=== PATIENT | male | born 1975 | race Two or more races ===

== ENCOUNTER 2016-07-22 16:46 | Emergency (ER) | payer SELFPAY ==
[2016-07-22 17:37] VITALS: BP 121/73
--- NOTE | 2016-07-22 17:58 | UC ---
Throat Pain/Nasal Jc HPI - HPI Summary HPI Summary: 40 male presents complaining of nasal congestion, sore throat, and cough for the past 8 days. Patient states he has had sinus pressure and pain. He has tried taking Nyquil and Mucinex without much relief. Patient has intermittent chills but has not taken his temperature. States his throat is very irritated and raw causing him to cough. He states it feels very swollen. Denies chest pain , SOB, ear pain, nausea, vomiting or abdominal pain. Patient does feel fatigued. - History of Current Complaint Chief Complaint: UCRespiratory Stated Complaint: COUGH,CONGESTION,ST Time Seen by Provider: 07/22/16 17:41 Hx Obtained From: Patient Onset/Duration: Sudden Onset, Lasting Weeks - 8 days Severity: Moderate Pain Intensity: 4 Pain Scale Used: 0-10 Numeric Cough: Productive Associated Signs & Symptoms: Positive: Dysphagia, Sinus Discomfort, Nasal Discharge - Allergies/Home Medications Allergies/Adverse Reactions: Allergies Allergy/AdvReac Type Severity Reaction Status Date / Time No Known Allergies Allergy Verified 07/22/16 17:38 Home Medications: Home Medications Dextromethorphan-Phenylephrine [Vicks Dayquil Cold & Flu] 2 cap PO Q4HR PRN [History Confirmed 07/22/16] Otc Cough Med 1 dose PO Q4HR PRN 07/22/16 [History Confirmed 07/22/16] guaiFENesin ER TAB [Mucinex*] 600 mg PO BID 07/22/16 [History Confirmed 07/22/16 ] PMH/Surg Hx/FS Hx/Imm Hx Previously Healthy: Yes - Surgical History Surgery Procedure, Year, and Place: Tonsillar cyst removal - 1996 - Family History Known Family History: Positive: Unknown - Social History Alcohol Use: None Substance Use Type: None Smoking Status (MU): Former Smoker Length of Time of Smoking/Using Tobacco: Quit 2-3 years ago. Casual smoker. Review of Systems Constitutional: Chills, Fatigue Skin: Negative Eyes: Negative ENT: Sore Throat, Nasal Discharge, Other - sinus pressure/pain Respiratory: Cough Cardiovascular: Negative Gastrointestinal: Negative Genitourinary: Negative Motor: Negative Neurovascular: Negative Musculoskeletal: Negative Neurological: Negative Psychological: Negative All Other Systems Reviewed And Are Negative: Yes Physical Exam Triage Information Reviewed: Yes Appearance: Well-Appearing, No Pain Distress, Well-Nourished Vital Signs: Initial Vital Signs Temp 98.8 F 07/22/16 17:31 Pulse 83 07/22/16 17:31 Resp 18 07/22/16 17:31 BP 121/73 07/22/16 17:31 Pulse Ox 96 07/22/16 17:31 Vital Signs Reviewed: Yes Eye Exam: Normal ENT: Positive: Hearing grossly normal, Pharyngeal erythema, Nasal congestion, Nasal drainage, TMs normal, Other: - sounds congested, frontal and maxillary sinus discomfort on palpation and percussion Dental Exam: Normal Neck: Positive: Supple, Nontender, Enlarged Nodes @ - left cervical Respiratory: Positive: Chest non-tender, Lungs clear, Normal breath sounds, No respiratory distress Cardiovascular: Positive: RRR, No Murmur, Pulses Normal, Brisk Capillary Refill Abdomen Description: Positive: Nontender, Soft Musculoskeletal Exam: Normal Neurological Exam: Normal Psychological Exam: Normal Skin Exam: Normal Throat Pain/Nasal Course/Dx - Course Course Of Treatment: Patient will be instructed to continue OTC medications and prescribed augmentin for sinusitis since he has had no relief after 8 days. - Differential Dx/Diagnosis Differential Diagnosis/HQI/PQRI: Laryngitis, Otitis Media, Pharyngitis, Sinusitis, URI Provider Diagnoses: Acute Bacterial Sinusitis Discharge - Discharge Plan Condition: Stable Disposition: HOME Prescriptions: Amoxicillin/Clavulanate TAB* [Augmentin TAB 875*] 875 mg PO BID #10 tab predniSONE TAB* [Deltasone TAB*] 40 mg PO DAILY #6 tab Patient Education Materials: Sinusitis (ED) Referrals: No Primary Care Phys,NOPCP [Primary Care Provider] - Additional Instructions: Take prescribed medication until all doses are finished even if symptoms improved. Be sure to take the medication with food. You may still use OTC medications as needed. Try using saline rinses. Drink plenty of fluids and get a lot of rest. Hot packs on your cheeks may help with symptoms. If symptoms worsen or do not improve please return to . Follow up with your PCP as needed.
== END 2016-07-22 18:18 | disposition home or self-care (01) ==
LOC: UCCORT 16:46
DX: J01.90 Acute sinusitis, unspecified (principal); Z87.891 Personal history of nicotine dependence
CPT/HCPCS: 99212; G0463

== ENCOUNTER 2016-09-15 17:58 | Emergency (ER) | payer OTHER ==
[2016-09-15 19:01] VITALS: BP 128/80
--- NOTE | 2016-09-15 20:16 | UC ---
Shoulder Pain HPI - HPI Summary HPI Summary: The patient comes in today for: 1. Right shoulder pain: Onset: Last night Palliative/provocative: moving makes the pain worse. Quality: Sharp Region: Posterior right shoulder Severity: 04/07 Time: Constant. Associated symptoms: Event: He fell last night. He was walking out of the door to get wood. He was going down the front steps and he fell landing on his back and right shoulder. He states that he wanted to cry. He took a pack meat out of the freezer and used it as a cold compress last night while in bed. He has not taken any medications for this. Previous disease: None Previous treatment: None other than cold compresses. * - History of Current Complaint Chief Complaint: UCUpperExtremity Stated Complaint: RIGHT SHOULDER PAIN Time Seen by Provider: 09/15/16 20:01 Hx Obtained From: Patient - Allergies/Home Medications Allergies/Adverse Reactions: Allergies Allergy/AdvReac Type Severity Reaction Status Date / Time No Known Allergies Allergy Verified 09/15/16 18:54 PMH/Surg Hx/FS Hx/Imm Hx Previously Healthy: No Endocrine History Of: Denies: Diabetes, Thyroid Disease, Hyperthyroidism, Hypothyroidism, Dyslipidemia Cardiovascular History Of: Denies: Cardiac Disorders, Hypertension, Pacemaker/ICD, Myocardial Infarction , Congestive Heart Failure, Atrial Fibrillation, Deep Vein Thrombosis, Bleeding Disorders Respiratory History Of: Denies: COPD, Asthma, Bronchitis, Pneumonia, Pulmonary Embolism GI/ History Of: Reports: Gastroesophageal Reflux - OTC Rx. Denies: Ulcer, Gastrointestinal Bleed, Gall Bladder Disease, Kidney Stones, Diverticulitis, Renal Disease, Urosepsis Neurological History Of: Denies: TIA, CVA, Dementia, Seizures, Migraine Psychological History Of: Denies: Anxiety, Depression, Bipolar Disorder, Schizophrenia, Post Traumatic Stress Disorder Cancer History Of: Denies: Lung Cancer, Colorectal Cancer, Breast Cancer, Prostate Cancer, Cervical Cancer Other History Of: Negative For: HIV, Hepatitis B, Hepatitis C, Anticoagulant Therapy - Surgical History Surgical History: Yes Surgery Procedure, Year, and Place: Tonsillar cyst removal - 1996 - Family History Known Family History: Negative: Cardiac Disease, Hypertension - Social History Occupation: Employed Full-time Alcohol Use: None Substance Use Type: None Smoking Status (MU): Former Smoker Length of Time of Smoking/Using Tobacco: Quit 2-3 years ago. Casual smoker. Household Exposure Type: Cigarettes Review of Systems Constitutional: Negative Skin: Negative Eyes: Negative ENT: Negative Respiratory: Negative Cardiovascular: Negative Gastrointestinal: Negative Genitourinary: Negative Musculoskeletal: Arthralgia, Myalgia All Other Systems Reviewed And Are Negative: Yes Physical Exam Triage Information Reviewed: Yes Appearance: Well-Appearing, No Pain Distress - Patient states that his pain is a 10/10, but he is smiling at times and not grimacing during the history taking. , Well-Nourished Vital Signs: Initial Vital Signs Temp 98.7 F 09/15/16 18:56 Pulse 55 09/15/16 18:56 Resp 14 09/15/16 18:56 BP 128/80 09/15/16 18:56 Pulse Ox 97 09/15/16 18:56 Vital Signs Reviewed: Yes Eyes: Positive: Conjunctiva Clear. Negative: Discharge ENT: Positive: Hearing grossly normal. Negative: Pharyngeal erythema, Nasal congestion, Nasal drainage, TM bulging, TM dull, TM red, Tonsillar swelling, Tonsillar exudate Dental: Negative: Gross Decay/Caries @, Dental Fracture @ Neck: Positive: Supple, Nontender, No Lymphadenopathy. Negative: Nuchal Rigidity Respiratory: Positive: Chest non-tender, Lungs clear, No respiratory distress, No accessory muscle use. Negative: Crackles, Rhonchi Cardiovascular: Positive: RRR, No Murmur Abdomen Description: Positive: Nontender, No Organomegaly, Soft. Negative: Distended, Guarding, Peritoneal Signs, Pulsatile Mass Musculoskeletal: Positive: Strength Intact, ROM Limited @, Other: - Right shoulder: He has no marked different in anatomy of the right shoulder compared to the left in terms of coloration or edema or induration. There is tenderness to palpation of the superior/medial corner of the scapula, and over the biceps tendon. He has abduction linmitation to 90 degrees--parallel to the floor. Anterior abduction is slightly less. There is no ecchymosis or erythema. There is minimal tenderness to palpation of the AC joint. Resistance to inward and outward rotation elicits pain. Neurological: Positive: Alert, Muscle Tone Normal Psychological: Positive: Age Appropriate Behavior, Consolable Skin: Negative: rashes, breakdown Shoulder Course/Dx - Course Course Of Treatment: He was given a toradol injection (60 mg), and a right shoulder x-ray done. He was told that the shoulder x-ray was normal and that he probably had muscular injury. - Differential Dx/Diagnosis Provider Diagnoses: right shoulder pain/contusion Discharge - Discharge Plan Condition: Stable Disposition: HOME Patient Education Materials: Shoulder Sprain (ED) Forms: *Work Release Referrals: No Primary Care Phys,NOPCP [Primary Care Provider] - Olman Gonzalez MD [Medical Doctor] - 1 Week (Please call Dr. Gonzalez's office for a follow-up visit later this week to see how well you are doing. If you get worse, please be seen sooner.)
[2016-09-15] MEDS ORDERED: Ketorolac INJ* 60 MG/2 ML VIAL IM ONE (20:46)
--- NOTE | 2016-09-15 21:24 | RAD ---
Indication: Right shoulder pain. 3 views of the right shoulder demonstrates no fracture. No other bone or joint abnormality is identified. IMPRESSION: No fracture of the right shoulder is identified.
[2016-09-15] MEDS ORDERED: HYDROcodone/ACETAMIN 5-325 MG* 1 TAB PO ONE (21:47)
== END 2016-09-15 21:58 | disposition home or self-care (01) ==
LOC: UCCORT 17:58
DX: S40.011A Contusion of right shoulder, initial encounter (principal); W10.9XXA Fall (on) (from) unspecified stairs and steps, initial encounter; Y93.89 Activity, other specified; Y92.9 Unspecified place or not applicable; K21.9 Gastro-esophageal reflux disease without esophagitis; Z87.891 Personal history of nicotine dependence
CPT/HCPCS: 96372; 99213; G0463; J1885

== ENCOUNTER 2017-03-13 10:58 | Emergency (ER) | payer OTHER ==
[2017-03-13 11:07] VITALS: BP 151/103
--- NOTE | 2017-03-13 11:40 | RAD ---
INDICATION: Trauma, table saw cut distal aspect of the left thumb. TECHNIQUE: 3 views of the left thumb were obtained. FINDINGS: There is a focal soft tissue defect present along the volar aspect of the distal thumb. There are couple small calcific densities which project over the superficial tuft soft tissues in the region of injury. The bones are normal alignment. No fracture is seen. Joint spaces appear maintained. IMPRESSION: SOFT TISSUE INJURY.
[2017-03-13] MEDS ORDERED: Gelfoam 12-7 ADSORBABL SPONGE* 1 EA SPONGE TOPICAL ONE (11:59)
--- NOTE | 2017-03-13 13:08 | UC ---
Laceration HPI - HPI Summary HPI Summary: 30 MINUTES [employer] WHILE WORKING, CUTTING SHIMS. CUT PAD OF LEFT THUMB WITH POWER SAW. LAST TETANUS 2012. - History Of Current Complaint Chief Complaint: UCLaceration Stated Complaint: LEFT THUMB LACERATION Time Seen by Provider: 03/13/17 11:17 Hx Obtained From: Patient Laceration Location: Finger Mechanism Of Injury: Sharp Trauma Onset/Duration: Sudden Onset, Lasting Minutes Severity: Moderate Pain Intensity: 8 Pain Scale Used: 0-10 Numeric Related History: Occupational Injury, Dominant Hand Right - Allergies/Home Medications Allergies/Adverse Reactions: Allergies Allergy/AdvReac Type Severity Reaction Status Date / Time No Known Allergies Allergy Verified 03/13/17 11:02 PMH/Surg Hx/FS Hx/Imm Hx Previously Healthy: Yes Other History Of: Negative For: HIV, Hepatitis B, Hepatitis C, Anticoagulant Therapy - Surgical History Surgical History: Yes Surgery Procedure, Year, and Place: Tonsillar cyst removal - 1996 - Family History Known Family History: Positive: Unknown Negative: Cardiac Disease, Hypertension - Social History Occupation: Employed Full-time Lives: With Family Alcohol Use: None Substance Use Type: None Smoking Status (MU): Former Smoker Length of Time of Smoking/Using Tobacco: Quit 4-5 years ago. Casual smoker. Household Exposure Type: Cigarettes - Immunization History Most Recent Tetanus Shot: 2012 Review of Systems Constitutional: Negative Skin: Other - AVULSION INJURY PALMAR SURFACE OF LEFT DISTAL THUMB Eyes: Negative ENT: Negative Respiratory: Negative Cardiovascular: Negative Gastrointestinal: Negative Genitourinary: Negative Motor: Negative Neurovascular: Negative Musculoskeletal: Myalgia - AVULSION INJURY PALMAR SURFACE OF LEFT DISTAL THUMB Neurological: Negative Psychological: Negative Is Patient Immunocompromised?: No All Other Systems Reviewed And Are Negative: Yes Physical Exam Triage Information Reviewed: Yes Appearance: Well-Appearing, Well-Nourished, Pain Distress Vital Signs: Initial Vital Signs Temp 98.6 F 03/13/17 11:03 Pulse 56 03/13/17 11:03 Resp 18 03/13/17 11:03 BP 151/103 03/13/17 11:03 Pulse Ox 100 03/13/17 11:03 Vital Signs Reviewed: Yes Eye Exam: Normal ENT Exam: Normal Dental Exam: Normal Neck exam: Normal Neck: Positive: Supple, Nontender, No Lymphadenopathy Respiratory Exam: Normal Respiratory: Positive: Chest non-tender, Lungs clear, Normal breath sounds, No respiratory distress, No accessory muscle use Cardiovascular Exam: Normal Cardiovascular: Positive: RRR, No Murmur, Pulses Normal Abdominal Exam: Normal Musculoskeletal: Positive: Strength Intact, ROM Intact, No Edema, Other: - AVULSION INJURY PALMAR SURFACE OF LEFT DISTAL THUMB Neurological Exam: Normal Psychological Exam: Normal Skin: Positive: Other - AVULSION INJURY PALMAR SURFACE OF LEFT DISTAL THUMB Laceration Repair - Laceration Repair 1 Description: Irregular - AVULSION INJURY PALMAR SURFACE OF LEFT DISTAL THUMB Laceration Size After Repair: Length (cm) - 2, Width (mm) - 5, Depth (mm) - 5 Modified For Repair: No Cleansing Completed Via Routine Prep: Yes Irrigation With Pressure Irrigation Device: Yes Suture Type: Other - GELFOAM Laceration Course/Dx - Differential Dx - Laceration/Wound Differental Diagnoses: Avulsion, Foreign Body, Fracture, Joint Space Violation, Joint Infection Provider Diagnoses: AVULSION INJURY PALMAR SURFACE OF LEFT DISTAL THUMB Discharge - Discharge Plan Condition: Stable Disposition: HOME Prescriptions: Hydrocodone-Acetaminophen [[place] 5-325 mg] 1 tab PO Q8HR #9 tab MDD THREE TABS Patient Education Materials: Skin Avulsion (ED) Forms: *Work Release Referrals: [facility] [place]] No Primary Care Phys,NOPCP [Primary Care Provider] - Additional Instructions: GEL FOAM APPLIED. PLEASE CHANGE DRESSING IN 36 HOURS. Images Hands: 1 - AVULSION INJURY PALMAR SURFACE OF LEFT DISTAL THUMB
== END 2017-03-13 12:18 | disposition home or self-care (01) ==
LOC: UCCORT 10:58
DX: S61.012A Laceration without foreign body of left thumb without damage to nail, initial encounter (principal)
CPT/HCPCS: 99212; A9270-GY; G0463

== ENCOUNTER 2017-05-25 16:43 | Emergency (ER) | payer SELFPAY | END 2017-05-25 18:46 | disposition left against medical advice (07) | LOC: UCCORT 16:43 | DX: R42 Dizziness and giddiness (principal); Z53.21 Procedure and treatment not carried out due to patient leaving prior to being seen by health care provider ==

== ENCOUNTER 2017-07-25 20:26 | Emergency (ER) | payer OTHER ==
[2017-07-25 20:42] VITALS: BP 122/79
--- NOTE | 2017-07-25 20:52 | UC ---
FLU HPI - HPI Summary HPI Summary: 41 y/o male presents to the urgent care c/o dry cough, AG, sinus pressure and pain and fever since this morning. Pt reports nasal congestion started about 1 week ago. He has taking Mucinex PO alleviate symptoms . He took Ibuprofen 600mg PO around 1900 to alleviate fever of 102.6. Pt denies SOB, wheezing, chest pain , abdominal pain , N/V/D - History of Current Complaint Chief Complaint: UCGeneralIllness Stated Complaint: FLU SXS Time Seen by Provider: 07/25/17 20:43 Hx Obtained From: Patient Onset/Duration: Gradual Onset, Lasting Days - this morning, Still Present Severity Currently: Moderate Severity Initially: Mild Pain Intensity: 7 Pain Scale Used: 0-10 Numeric Associated Signs & Symptoms: Positive: Fever, Myalgia, Cough, Sore Throat, Nasal Congestion, Headache - Risk Factors Influenza Risk Factors: Negative - Allergy/Home Medications Allergies/Adverse Reactions: Allergies Allergy/AdvReac Type Severity Reaction Status Date / Time No Known Allergies Allergy Verified 07/25/17 20:35 PMH/Surg Hx/FS Hx/Imm Hx Previously Healthy: Yes Cardiovascular History: Hypertension - diet control Other History Of: Negative For: HIV, Hepatitis B, Hepatitis C, Anticoagulant Therapy - Surgical History Surgical History: Yes Surgery Procedure, Year, and Place: Tonsillar cyst removal - 1996 - Family History Known Family History: Negative: Cardiac Disease, Hypertension Family History: dyslipidemia - Social History Occupation: Employed Full-time Lives: With Family Alcohol Use: None Substance Use Type: None Smoking Status (MU): Former Smoker Length of Time of Smoking/Using Tobacco: Quit 4-5 years ago. Casual smoker. Household Exposure Type: Cigarettes - Immunization History Most Recent Tetanus Shot: 2012 Review of Systems Constitutional: Fever, Chills, Other - body aches Skin: Negative Eyes: Negative ENT: Sore Throat, Nasal Discharge, Sinus Congestion, Sinus Pain/Tenderness Respiratory: Cough Cardiovascular: Negative Gastrointestinal: Negative Genitourinary: Negative Motor: Negative Neurovascular: Negative Musculoskeletal: Negative Neurological: Headache Psychological: Negative Is Patient Immunocompromised?: No All Other Systems Reviewed And Are Negative: Yes Physical Exam Triage Information Reviewed: Yes Vital Signs: Initial Vital Signs Temp 98 F 07/25/17 20:36 Pulse 85 07/25/17 20:36 Resp 16 07/25/17 20:36 BP 122/79 07/25/17 20:36 Pulse Ox 97 07/25/17 20:36 - Additional Comments VITAL SIGNS: Reviewed. GENERAL: Patient is a well developed and nourished male who is sitting comfortable in the examining table. Patient is not in any acute respiratory distress. HEAD AND FACE: No signs of trauma. No ecchymosis, hematomas or skull depressions. No sinus tenderness. edematous erythematous nasal mucosa with yellowish discharge, EYES: PERRLA, EOMI x 2, No injected conjunctiva, clear watery eyes, no nystagmus. No photophobia. EARS: Hearing grossly intact. Ear canals and tympanic membranes are within normal limits. MOUTH: Positive pharynx with erythema, no exudates,no palatal petechiae. no B/L tonsillar enlargement Uvula in midline. NECK: Supple, trachea is midline, Positive anterior cervical lymphadenopathy, no JVD, no carotid bruit, no c-spine tenderness, neck with full ROM. No meningeal signs, no Kernig's or brudzinskis signs. CHEST: Symmetric, no tenderness at palpation LUNGS: Clear to auscultation bilaterally. No wheezing or crackles. CVS: Regular rate and rhythm, S1 and S2 present, no murmurs or gallops appreciated. ABDOMEN: Soft, non-tender. No signs of distention. No rebound no guarding, and no masses palpated. Bowel sounds are normal. EXTREMITIES: FROM in all major joints, no edema, no cyanosis or clubbing. NEURO: Alert and oriented x 3. No acute neurological deficits. Speech is normal and follows commands. SKIN: Dry and warm Flu Course/Dx - Course Course Of Treatment: 41 y/o male presents to the urgent care c/o dry cough, AG, sinus pressure and pain and fever since this morning. Pt reports nasal congestion started about 1 week ago. He has taking Mucinex PO alleviate symptoms . He took Ibuprofen 600mg PO around 1900 to alleviate fever of 102.6. Pt denies SOB, wheezing, chest pain, abdominal pain , N/V/D. Hx obtained. Pt with pharyngitis on examination. Influenza A&B ordered: result: Influenza A positive.Pt Rx Tamiflu and ibuprofen PO to alleviates symptoms. First dose given today at the clinic. Pt toelerated well medication. Advised on hand washing and wear a mask to avoid spreading. Pt advised to rest, increase fluid intake, eat well and avoid strenuous exercise. If symptoms do not improve or worsen advised to return to the urgent care or f/u with her PCP for further evaluation and treatment. Pt understood and agreed with plan of care. - Differential Dx/Diagnosis Differential Diagnosis/HQI/PQRI: Bronchitis, Influenza, Upper Respiratory Infection Provider Diagnoses: 1- Influenza A Discharge - Discharge Plan Condition: Stable Disposition: HOME Prescriptions: Ibuprofen TAB* [Motrin TAB* 800 MG] 800 mg PO Q6H PRN #20 tab PRN Reason: Fever Oseltamivir CAP* [Tamiflu CAP*] 75 mg PO BID #9 cap Patient Education Materials: Influenza (ED) Forms: *Work Release Referrals: [facility] [place]] - If Needed Additional Instructions: 1- Please take the full course of the antiviral to avoid resistance. Encourage hand washing and wear a mask to avoid spreading. 2-Please continue taking Ibuprofen PO q6-8hrs prn as instructed after meals to alleviate fever, and sore throat. Increase fluid intake, eat well, rest and avoid strenuous exercise 3-If symptoms do not improve or worsen please return to the urgent care or f/u with your PCP in 2 days for further evaluation and treatment. 4- If you develop SOB, severe fever despite taking medications please go immediately to the ER for further treatment
[2017-07-25] MEDS ORDERED: Oseltamivir CAP* 75 MG CAP PO ONE (21:01)
== END 2017-07-25 21:12 | disposition home or self-care (01) ==
LOC: UCCORT 20:26
DX: J11.1 Influenza due to unidentified influenza virus with other respiratory manifestations (principal); I10 Essential (primary) hypertension; Z72.0 Tobacco use
CPT/HCPCS: 87502; 99212; A9270-GY; G0463